=== PATIENT | male | born 1960 | race Caucasian/White ===

== ENCOUNTER 2017-05-22 10:48 | Day surgery (SDC) | payer OTHER ==
[~2017-05-22] VITALS: Ht 167.6 cm; Wt 77.8 kg
[2017-05-22] VITALS (9 sets, daily range): BP systolic 128–175; BP diastolic 69–76; PULSE 75–86; RESP 14–21; Ht 167.6 cm; Wt 77.8 kg
[2017-05-22 11:59] LABS: BASOPHILS % 0.5 % (0.0-2.0); EOSINOPHILS # 0.1 10^3/ul (0.0-0.5); EOSINOPHILS % 0.6 % (0.0-7.0); HEMATOCRIT 42.5 % (42.0-52.0); HEMOGLOBIN 14.5 g/dl (14.0-18.0); LYMPHOCYTES # 2.4 10^3/ul (0.8-2.9); LYMPHOCYTES % 31.3 % (15.0-51.0); MEAN CORPUSCULAR HEMOGLOBIN 29.9 pg (29.0-33.0); MEAN CORPUSCULAR HGB CONC 34.1 g/dl (32.0-37.0); MEAN CORPUSCULAR VOLUME 87.6 fl (82.0-101.0); MEAN PLATELET VOLUME 10.5 fl (7.4-10.4); MONOCYTE # 0.5 10^3/ul (0.3-0.9); MONOCYTES % 5.8 % (0.0-11.0); NEUTROPHIL # 4.7 10^3/ul (1.6-7.5); NEUTROPHILS % 61.4 % (39.0-77.0); PLATELET COUNT 216 10^3/UL (140-415); RED BLOOD COUNT 4.85 10^6/ul (4.70-6.10); RED CELL DISTRIBUTION WIDTH 13.5 % (11.5-14.5); WHITE BLOOD COUNT 7.7 10^3/ul (4.8-10.8)
[2017-05-22] MEDS ORDERED: CEFAZOLIN 2 GM/50 ML (PMX) 50 ML IVPB ONE (12:00)
[2017-05-22] MEDS ORDERED: SOD CHLORIDE 0.9% 1,000 ML IV ONE (12:00)
--- NOTE | 2017-05-22 12:06 | RADRPT ---
PROCEDURE: XR Chest. CLINICAL INDICATION: Preoperative, inguinal hernia repair TECHNIQUE: Single frontal view of the chest was obtained COMPARISON: None FINDINGS: The heart and mediastinum are within normal limits. There are multiple calcifications and right upper quadrant, suspicious for calcifications in the reagan er. The lungs are clear. There is no pleural effusion or pneumothorax. RPTAT: AA IMPRESSION: No acute disease. Multiple calcifications in the right upper quadrant, may represent calcifications within the liver. Further evaluation with ultrasound of the abdomen or CT is recommended. .eFr Munson MD, MD Date Time Electronically viewed and signed by .Fer Munson MD, MD on 05/22/2017 12:06 .S/
[2017-05-22 12:16] LABS: CALCIUM 9.1 mg/dl (8.4-10.2); CREATININE 0.81 mg/dl (0.61-1.24); POTASSIUM 4.8 mmol/L (3.5-5.1)
[2017-05-22 12:28] LABS: INR 0.96; PROTIME 12.8 Sec (12.2-14.2)
[2017-05-22] MEDS ORDERED: FENTAnyl 50 MCG/ML VIAL ONE (12:28)
[2017-05-22 12:29] LABS: PARTIAL THROMBOPLASTIN TIME 28.6 Sec (25.0-35.0)
[2017-05-22] MEDS ORDERED: LIDOCAINE 2% (SDV) 5 ML INJ ONE (12:45)
[2017-05-22] MEDS ORDERED: SUCCINYLCHOLINE CHLORIDE 100 MG/5 ML SYG IV ONE (12:45)
[2017-05-22] MEDS ORDERED: CEFAZOLIN 1 GM INJ ONE (12:45)
[2017-05-22] MEDS ORDERED: PROPOFOL 20 ML ONE (12:45)
[2017-05-22] MEDS ORDERED: ROCURONIUM 50 MG INJ ONE (12:45)
[2017-05-22] MEDS ORDERED: SUGAMMADEX SODIUM 200 MG/2 ML VIAL IV ONE (12:46)
[2017-05-22] MEDS ORDERED: POLYMYXIN/BACITRACIN 1L IRRIG ONE (12:47)
[2017-05-22] MEDS ORDERED: BUPIVACAINE 0.5%/EPI (SDV) 30 ML INJ ONE (12:47)
[2017-05-22] MEDS ORDERED: BUPIVACAINE 0.5% (SDV) 30 ML INJ ONE (12:47)
[2017-05-22] MEDS ORDERED: DIPHENHYDRAMINE 50 MG INJ IV PRN (13:00)
[2017-05-22] MEDS ORDERED: FENTAnyl 50 MCG/ML VIAL IV PRN ×2 (13:00)
[2017-05-22] MEDS ORDERED: HYDROmorphONE (0.2 MG/ML) 10ML SYG IV PRN ×2 (13:00)
[2017-05-22] MEDS ORDERED: METOCLOPRAMIDE 10 MG INJ IV PRN (13:00)
[2017-05-22] MEDS ORDERED: MEPERIDINE 25 MG INJ IV PRN (13:00)
[2017-05-22] MEDS ORDERED: ONDANSETRON 4 MG INJ IV PRN (13:00)
--- NOTE | 2017-05-22 13:44 | SIPON ---
Date/Time of Note Date/Time of Note DATE: 05/22/17 TIME: 13:43 Operative Report Preoperative Diagnosis Right inguinal hernia Postoperative Diagnosis Incarcerated direct right inguinal hernia Operation/Procedure Performed Right inguinal herniorrhaphy with mesh Surgeon see signature line blood and plasma laboratory assistant None Anesthesia: general Estimated blood loss: 10 - 50 ml's Transfusion Required none Specimen None Grafts/Implants none Complications none MARLIN HUDSON MD May 22, 2017 13:44
[2017-05-22] MEDS ORDERED: HYDROCODONE/APAP (10/325) TAB PO ONE (15:00)
--- NOTE | 2017-05-22 17:35 | OPR ---
DATE OF OPERATION: 05/22/2017 PREOPERATIVE DIAGNOSIS: Symptomatic right inguinal hernia. POSTOPERATIVE DIAGNOSIS: Symptomatic direct right inguinal hernia. PROCEDURE: Right inguinal herniorrhaphy with mesh. ANESTHESIA: General. ANESTHESIOLOGIST: Dr. Euceda. SURGEON: Dennis Henley MD G[employer]UR[employer]INE ASSEMBLER: None. INDICATIONS FOR PROCEDURE: The patient is a 57-year-old male who presented with a symptomatic right inguinal hernia. He was counseled as to the risks versus benefits of repair. He consented and was scheduled for surgery. DESCRIPTION OF PROCEDURE: The patient was brought to the operating theater, placed under general an esthesia. The right groin was shaved, prepped and draped in the usual sterile fashion. Approximate ly a 5 cm incision was made in the right groin transversing the approximate locations of the interna l and external inguinal rings. Subcutaneous tissue was dissected with cautery down to the aponeuros is of the external oblique. A large hernia could be seen protruding through the external ring. The aponeurosis was then incised in the direction of the fibers through the external ring. With blunt dissection, medial and lateral flaps were developed in the standard fashion. The ilioinguinal and i liohypogastric nerves were identified, dissected and moved out of harm's way. The right spermatic c ord was then elevated off of the right pubic tubercle and with meticulous dissection, the large dire ct hernia sac was dissected off of the cord structures. A piece of mesh was then cut to size and la id over the inguinal floor while the hernia was held in reduction. It was sutured laterally with 2- 0 Prolene suture to the inguinal ligament in running fashion and medially to the abdominal wall fasc ia also with a 2-0 Prolene suture in running fashion. On the superolateral aspect, a small slot was cut to facilitate cord transgression and additional sutures were then placed superior to this slot. The wound was then irrigated. There was no evidence of bleeding. An ilioinguinal and iliohypogas tric nerve block was performed with 0.5% Marcaine local anesthetic with epinephrine. The ilioinguin al and iliohypogastric nerves were laid back in their normal anatomic location within the inguinal c anal. The aponeurosis of the external oblique was then reapproximated with a 3-0 Vicryl suture in r unning fashion. The wound was irrigated with Betadine. The skin was reapproximated with skin stapl es. The patient tolerated the procedure well. The estimated blood loss was approximately 20 mL. T here were no complications, and the patient was transported in stable condition to the recovery room . Dictated By: DENNIS HERNANDEZ/LYUBOV Conf#: [id number] DID#: [id number]
--- NOTE | 2017-05-23 21:46 | RADRPT ---
Vent Rate: 75 bpm RR Interval: 0 msec NV Interval: 142 msec QRS Duration: 78 msec QT Interval: 372 msec QTC Interval: 415 msec P-R-T [place]: 59 - 36 - 34 degrees Sinus rhythm with occasional premature ventricular complexes Otherwise normal ECG Electronically Signed By: Osvaldo Lawrence [id number]
== END 2017-05-22 15:35 | disposition home or self-care (01) ==
LOC: SDS 10:48
PROVIDERS: ATTEND Surgery Surgical Oncology
DX: K40.90 Unilateral inguinal hernia, without obstruction or gangrene, not specified as recurrent (principal)
CPT/HCPCS: 49505; 71010; 80048; 85025; 85610; 85730; 93005; C1781; J0690; J2175; J2405; J3010